=== PATIENT | female | born 1955 | race Caucasian/White ===

== ENCOUNTER 2016-10-11 12:06 | Emergency (ER) | payer OTHER ==
[~2016-10-11] VITALS: Ht 153.7 cm; Wt 58.6 kg
[2016-10-11 12:07] VITALS: TEMP 36.8; Ht 153.7 cm; Wt 58.6 kg
[2016-10-11] MEDS ORDERED: TRAM-10 PO (12:22)
[2016-10-11] MEDS ORDERED: CHOL100010 PO (12:22)
[2016-10-11] MEDS ORDERED: CEPHALEXIN MONOHYDRATE 250 MG CAP PO STA (13:00)
[2016-10-11] MEDS ORDERED: MICONAZOLE NITRATE 2% CR 30 GM TUBE EXT STA (13:00)
[2016-10-11] MEDS ORDERED: CEPHALEXIN 500MG HOME PACK 1 EA BTL PO STA (13:00)
[2016-10-11] MEDS ORDERED: CEPH500C PO (13:10)
--- NOTE | 2016-10-11 13:10 | EMERGENCY ROOM VISIT NOTE ---
History First contact with patient: 12:32 Chief Complaint: RASH Stated Complaint: RASH & SWELLING History of Present Illness The patient is a 61 year old female who presents to the Emergency Room via private vehicle with complaints of "rash and swelling". The patient states that day she noticed redness in the right inguinal region, and yesterday felt a painful lump in the right inguinal region. She states that there is now red rash in this region, and the rash is longer and wider than was previously. She denies any bowel rash, or recent bite to the region. The region is sore in nature. Review of Systems A complete 6-point Review of Systems was discussed with the patient, with pertinent positives and negatives listed in the History of Present Illness. All remaining Review of Systems questions can be considered negative unless otherwise specified. Past Medical/Surgical History No pertinent past history. Family History No significant family history. Social History Smoking Status: Former Smoker Social History: Patient lives locally with male Current/Historical Medications Scheduled Cephalexin Monohydrate (Keflex), 500 MG PO QID Cholecalciferol (Vitamin D), 1 TAB PO DAILY Scheduled PRN Tramadol (Ultram), 50 MG PO Q8H PRN for Pain Allergies Coded Allergies: Troleandomycin (Unverified Allergy, Intermediate, hives, 10/11/16) Physical Exam Vital Signs Date Time Temp Pulse Resp B/P Pulse Ox O2 Delivery O2 Flow Rate FiO2 10/11/16 13:31 82 16 124/80 100 10/11/16 12:07 36.8 92 18 130/87 99 Room Air Physical Exam VITAL SIGNS - Vital signs and nursing notes were reviewed. Afebrile, normotensive, non-tachycardic and is saturating well on room air at 99%. GENERAL -61-year-old female appearing her stated age who is in no acute distress. Communicates well with provider and answers questions appropriately. SKIN -there is an erythematous, 10 cm x 2 cm erythematous inguinal region, consistent with intertrigo or a localized cellulitis. There is an underlying palpable with noted. Medical Decision & Procedures Medications Administered Medications (Trade) Dose Ordered Sig/[place] Route Start Time Stop Time Status Last Admin Dose Admin Miconazole Nitrate (Monistat-Derm Crm) 1 appln BID STAT EXT 10/11/16 13:00 10/11/16 13:09 DC 10/11/16 13:18 1 APPLN Cephalexin Monohydrate (Keflex 500MG Home Pack) 1 homepack NOW STAT PO 10/11/16 13:00 10/11/16 13:09 DC 10/11/16 13:18 1 HOMEPACK Cephalexin Monohydrate (Keflex Cap) 500 mg NOW STAT PO 10/11/16 13:00 10/11/16 13:09 DC 10/11/16 13:18 500 MG Medical Decision Patient was seen and evaluated as above. After obtaining a thorough history and physical examination, is apparently the patient is likely experiencing intertrigo or cellulitis. For this region she'll be prescribed miconazole cream and also Keflex in case her is no underlying cellulitis. No evidence of meningitis, encephalitis or sepsis on examination. She was provided with the dose of miconazole cream here, as well as a short-term prescription for Keflex. She appears stable for discharge. She was educated upon management today's findings, educated upon worrisome symptoms which to return, had questions or discharge and was discharged home in good condition. In evaluation treatment this patient following differential diagnoses were entertained: Erythema migrans, cellulitis, intertrigo, meningitis, among others. Impression Primary Impression: right inguinal erythema Departure Information Dispostion Home / Self-Care Condition GOOD Prescriptions Cephalexin Monohydrate (Keflex) 500 Mg Cap 500 MG PO QID for 6 Days, #24 CAP Prov: Ruben Christensen PA-C 10/11/16 Referrals Khang Joseph D.O. (PCP) Patient Instructions My [facility] Additional Instructions You were seen in the emergency Department for redness in your right groin region. As we discussed this is likely a small fungal infection, however due to its presentation a small bacterial skin infection cannot be completely eliminated. For this reason, you will be placed upon a cream which you are to apply with a small layer to the area twice daily. This is for 4 weeks. You also be placed upon Keflex, this is an oral medication which is to be taken 4 times daily for 7 days. Please call your family doctor to schedule follow-up within 1 week. Please return here sooner with any new symptoms or worsening of your current condition. Thank you for your time.
[2016-10-11 13:31] VITALS: BP 124/80; PULSE 82; O2SAT 100
--- NOTE | 2016-10-11 17:10 | EMERGENCY ROOM VISIT NOTE ---
ED Visit Note First contact with patient: 12:32 I have personally evaluated this patient examined her and reviewed the pertinent labs and data. I have discussed the case with Ruben Christensen, the physician hair assistant and agree with the plan. Please refer to the PA note. This patient comes in after having an itchy rash on exam she has diffuse rash that is red. There is also areas where she's been itching. It could be related above bites or possibly scabies or hives. We'll treat her with antihistamines as well as treatment for scabies. She has no respiratory symptoms or GI symptoms. She should follow up with her regular doctor.
== END 2016-10-11 13:25 | disposition home or self-care (01) ==
LOC: C.EDB 12:06 → C.EDD 13:25
DX: L53.8 Other specified erythematous conditions (principal); B86 Scabies; Z87.891 Personal history of nicotine dependence; Z88.8 Allergy status to other drugs, medicaments and biological substances